=== PATIENT | male | born 1995 | race Two or more races ===

== ENCOUNTER 2016-09-25 01:35 | Emergency (ER) | payer SELFPAY ==
[~2016-09-25] VITALS: Ht 177.8 cm; Wt 77.1 kg
[~2016-09-25 01:35] MED LIST: IBUPROFEN600 MG ORAL; NKM; VICODIN 5-5001 EACH PO
[2016-09-25] MEDS ORDERED: NKM (01:44)
[2016-09-25 01:47] VITALS: BP 150/90
--- NOTE | 2016-09-25 01:50 | Emergency Room Report ---
History of Present Illness General Chief Complaint: Skin Rash/Abscess Source: Patient Present Illness HPI Patient with bump on top/side of scalp. He somtimes scrapes it and it bleeds. Not tender. It has gotten larger in the past 2 months. Uncertain why came today. Denies trauma. Tetanus UTD. No headache, fevers, NVD. Not seen MD yet. Allergies: Coded Allergies: No Known Allergies (Unverified , 02/21/12) Patient History Past Medical History: see triage record Social History: Denies: smoking Social History Narrative at home Reviewed Nursing Documentation: PMH: Agreed, PSxH: Agreed Nursing Documentation-PMH Past Medical History: No Stated History Review of Systems Constitutional: Denies: fever Eye: Denies: blurred vision ENT: Denies: ear discharge, nose congestion Musculoskeletal: Denies: back pain Skin: Reports: see HPI Psychiatric: Reports: anxiety Neurological: Denies: headache Hematologic/Lymphatic: Reports: see HPI Physical Exam Vital Signs Date Time Temp Pulse Resp B/P Pulse Ox O2 Delivery O2 Flow Rate FiO2 09/25/16 01:41 99.7 75 14 150/90 98 Room Air Sp02 EP Interpretation: reviewed, normal General Appearance: well appearing, no apparent distress Head: normocephalic, atraumatic Eyes: bilateral eye PERRL, bilateral eye normal inspection ENT: hearing grossly normal, normal voice Neck: full range of motion, supple Respiratory: no respiratory distress, speaking full sentences Musculoskeletal: digits/nails normal, gait/station normal, normal range of motion Neurologic: alert, normal gait, grossly normal Psychiatric: mood/affect normal Skin: other - lesion scalp with some old blood. Not pedunculated. No surrounding erythema. 1/2 cm raised and 1/2 CM circumferance Medical Decision Making Diagnostic Impression: Primary Impression: Skin lesion of scalp ER Course Lesion scalp noticed few months ago. Ddx: basil cell, seborreic keratosis, veruca, foreign body reaction, cutaneous horn amongst others. Not melanoma. Needs excision and biopsy. Patient told this and where to seek this treatment. He understood. Topical antibiotics so no infection. Patient stable for outpatient observation and treatment. Status: unchanged Disposition: HOME, SELF-CARE Condition: Stable Scripts Bacitracin (Bacitracin) 28.4 Gm Oint...g. 1 APPLIC TOPIC BID, #10 GM Prov: Chepe Dorado M.D. 09/25/16 Chepe Dorado M.D. Sep 25, 2016 01:50
[2016-09-25] MEDS ORDERED: BACITRACIN15 GM TOPIC (01:55)
[2016-09-25] MEDS ORDERED: Bacitracin Oint UD TOPIC ONE (02:00)
[2016-09-25 02:04] VITALS: BP 150/90
== END 2016-09-25 02:04 | disposition home or self-care (01) ==
LOC: EMR 02:00
DX: L98.8 Other specified disorders of the skin and subcutaneous tissue (principal); F41.9 Anxiety disorder, unspecified
CPT/HCPCS: 99283